=== PATIENT | female | born 1950 | race Hispanic/Latino ===

== ENCOUNTER → 2020-04-17 | Outpatient (CLI) | payer OTHER | END | disposition home or self-care (01) | LOC: RAH 10:35 | PROVIDERS: ATTEND Family Medicine | DX: N89.8 Other specified noninflammatory disorders of vagina (principal); Z90.81 Acquired absence of spleen; Z90.710 Acquired absence of both cervix and uterus | CPT/HCPCS: 76700; 76857 ==

== ENCOUNTER → 2020-05-15 | Outpatient (CLI) | payer OTHER | END | disposition home or self-care (01) | LOC: RAH 12:35 | PROVIDERS: ATTEND Family Medicine | DX: M71.21 Synovial cyst of popliteal space [Baker], right knee (principal); M79.89 Other specified soft tissue disorders | CPT/HCPCS: 93971 ==

== ENCOUNTER 2022-02-22 06:00 | Observation (INO) | payer MEDICARE ==
[2022-02-19 11:36] LABS: ALBUMIN 3.8 g/dL (3.5-5.0)
[2022-02-19 11:48] LABS: CRP QUANTITATIVE < 2.00 mg/L (0.00-9.0)
[2022-02-19 12:30] VITALS: BP 146/78
[2022-02-19 12:30] LABS: APPEARANCE,URINE CLEAR (CLEAR); BILIRUBIN,URINE NEGATIVE (NEGATIVE); COLOR,URINE LIGHT-YELLOW (YELLOW); GLUCOSE, URINE (UA) >=1000 mg/dL (NEGATIVE); KETONES,URINE NEGATIVE (NEGATIVE); LEUKOCYTE ESTERASE ,URINE NEGATIVE Leu/uL (NEGATIVE); NITRATE,URINE NEGATIVE (NEGATIVE); OCCULT BLOOD,URINE NEGATIVE (NEGATIVE); PH,URINE 5.5 (5.0-8.0); PROTEIN,URINE NEGATIVE (NEGATIVE); UROBILINOGEN,URINE 0.2 mg/dL (0.2-1.0)
[2022-02-19 12:38] LABS: BACTERIA,URINE RARE /HPF (None Seen); MUCUS,URINE RARE LPF (None Seen); SQUAMOUS EPITHELIAL CELL,UR RARE /HPF (0-2)
[2022-02-22] VITALS (23 sets, daily range): BP systolic 124–156; BP diastolic 54–95
[~2022-02-22] VITALS: Ht 160 cm; Wt 53.1 kg
[~2022-02-22 06:00] MED LIST: BIOTIN PO; CYAN-52 PO; EMPA10TA PO; KETOROLAC 30MG VIAL (30MG/ML) ONE; LATA7.5D OU; MAGN250T10 PO; MULT-1258 PO; PRAV10TA39 PO; ROPIVACAINE 0.5% 5MG/ML 30ML IJ ONE; TIMO1DRO5 OU; TRANEXAMIC ACID 1000MG/10ML ONE; UBID100C4 PO; VITAMIN D3 PO
[2022-02-22] MEDS ORDERED: CEFAZOLIN SODIUM 1 GM VIAL ONE (06:22)
[2022-02-22] MEDS ORDERED: 0.9%NACL 1000ML 1,000 ML IV ONE (06:22)
[2022-02-22] MEDS ORDERED: TRANEXAMIC ACID 1000MG/10ML ONE (06:35)
[2022-02-22] MEDS ORDERED: SUCCINYLCHOLINE 200MG/10ML SYR ONE (07:06)
[2022-02-22] MEDS ORDERED: LIDOCAINE PF 100MG/5ML (2%) SYRINGE 5ML ONE (07:06)
[2022-02-22] MEDS ORDERED: MIDAZOLAM HCL 1 MG/ML 2ML VIAL ONE (07:07)
[2022-02-22] MEDS ORDERED: ROCURONIUM 10MG/1ML SYR 10 MG/ML ML ONE (07:07)
[2022-02-22] MEDS ORDERED: PROPOFOL 10 MG/ML 20ML VIAL IV ONE (07:07)
[2022-02-22] MEDS ORDERED: EPHEDRINE SULFATE 50 MG/ML AMPULE ONE (07:07)
[2022-02-22] MEDS ORDERED: PHENYLEPHRINE HCL 10 MG/ML 1ML VIAL IV ONE (07:07)
[2022-02-22] MEDS ORDERED: FENTANYL CITRATE PF 50 MCG/1 ML 5ML AMP IV ONE (07:08)
[2022-02-22] MEDS ORDERED: 0.9%NACL 100ML 100 ML IV SCH (07:30)
[2022-02-22] MEDS ORDERED: KETOROLAC 30MG VIAL (30MG/ML) IVP SCH (07:30)
[2022-02-22] MEDS ORDERED: ROPIVACAINE 0.5% 5MG/ML 30ML IJ SCH (07:30)
[2022-02-22] MEDS ORDERED: ONDANSETRON 4MG INJ ONE (07:43)
[2022-02-22] MEDS ORDERED: DEXAMETHASONE SOD PHOSPHATE 10MG/ML 1ML VIAL ONE (07:43)
[2022-02-22] MEDS ORDERED: TRANEXAMIC ACID 1000MG/10ML IV ONE (07:57)
[2022-02-22] MEDS ORDERED: CEFAZOLIN SODIUM 1 GM VIAL IVP ONE (08:00)
[2022-02-22] MEDS ORDERED: NEOSTIGMINE 5MG/5ML SYR IV ONE (08:28)
[2022-02-22] MEDS ORDERED: GLYCOPYRROLATE 1 MG/5 ML SYRINGE ONE (08:28)
[2022-02-22] MEDS ORDERED: CALCIUM CARB 500MG PO PRN (09:00)
[2022-02-22] MEDS ORDERED: LIDOCAINE HCL-MPF 1% 2ML VIAL IV PRN (09:00)
[2022-02-22] MEDS ORDERED: TRAMADOL HCL 50 MG TABLET PO PRN (09:00)
[2022-02-22] MEDS ORDERED: FERROUS FUMARATE 324 MG TABLET PO PRN (09:00)
[2022-02-22] MEDS ORDERED: CYCLOBENZAPRINE HCL 10 MG TABLET PO PRN (09:00)
[2022-02-22] MEDS ORDERED: ONDANSETRON 4MG INJ IVP PRN (09:00)
[2022-02-22] MEDS ORDERED: HYDROCODONE/ACETAMINOPHEN 5/325 MG TAB PO PRN (09:00)
[2022-02-22] MEDS ORDERED: KCL 20 MEQ ERTAB PO PRN (09:00)
[2022-02-22] MEDS ORDERED: POTASSIUM CHLORIDE 20MEQ/100ML 100 ML IV PRN (09:00)
[2022-02-22] MEDS ORDERED: POTASSIUM CHLORIDE 10% ELIXIR 20 MEQ/15 ML UDCUP PO PRN (09:00)
[2022-02-22] MEDS ORDERED: MEPERIDINE-PF 25 MG/ML SYG ONE ×2 (09:34→09:45)
[2022-02-22] MEDS: 0.9%NACL 1000ML 1,000 ML IV SCH ×2 (11:00→16:19)
[2022-02-22] MEDS: DOCUSATE SODIUM 100 MG CAP PO SCH ×2 (11:25→20:17)
[2022-02-22] MEDS: ASPIRIN 325MG TAB PO SCH (11:25)
[2022-02-22] MEDS: POLYETHYLENE GLYCOL 3350 17 GM POWD.PACK PO SCH (11:26)
[2022-02-22] MEDS: GABAPENTIN 100 MG CAPSULE PO SCH ×3 (11:26→20:17)
[2022-02-22] MEDS: SIMVASTATIN 10 MG TABLET PO SCH (12:00)
[2022-02-22] MEDS: EMPAGLIFLOZIN 10 MG PO SCH (12:00)
[2022-02-22] MEDS: CYANOCOBALAMIN (VITAMIN B-12) 1,000 MCG TABLET PO SCH (12:07)
[2022-02-22] MEDS: MAGNESIUM OXIDE 400 MG TABLET PO SCH (12:09)
[2022-02-22] MEDS: MULTIVITAMIN TABLET PO SCH (12:10)
[2022-02-22] MEDS: BIOTIN PO SCH (12:19)
[2022-02-22] MEDS: KETOROLAC 15MG/ML VIAL (15MG/ML) IV SCH (12:50)
[2022-02-22] MEDS ORDERED: GLUCAGON 1MG KIT 1 MG ML IM PRN (13:00)
[2022-02-22] MEDS ORDERED: DEXTROSE 50%-WATER 50 ML DISP.SYRIN IV PRN (13:00)
[2022-02-22] MEDS: CEFAZOLIN SODIUM 1 GM VIAL IVP SCH ×2 (13:41→21:04)
[2022-02-22] MEDS: HYDROCODONE/ACETAMINOPHEN 5/325 MG TAB PO PRN ×2 (13:41→21:23)
[2022-02-22] MEDS: INSULIN HUMULIN R 100 UNIT/ML 3ML SQ SCH ×2 (16:30→20:22)
[2022-02-22] MEDS: TIMOLOL MALEATE 0.5% 5 ML BOTTLE OU SCH (20:15)
[2022-02-22] MEDS: LATANOPROST 2.5 ML DROPS OU SCH (20:15)
[2022-02-23 00:20] VITALS: BP 120/74
[2022-02-23] MEDS: KETOROLAC 15MG/ML VIAL (15MG/ML) IV SCH (01:13)
[2022-02-23] MEDS: HYDROCODONE/ACETAMINOPHEN 5/325 MG TAB PO PRN ×3 (03:43→18:23)
[2022-02-23 04:11] LABS: HEMATOCRIT 33.4 % (36-48); MEAN CORPUSCULAR HEMOGLOBIN 30.5 pg (27.0-33.0); MEAN CORPUSCULAR HGB CONC 33.5 g/dL (32.0-36.0); RED BLOOD CELL COUNT(AUTO) 3.67 MIL/uL (4.00-5.50); RED CELL DISTRIBUTION WIDTH 13.4 % (11.0-15.5)
[2022-02-23 04:18] LABS: CREATININE 0.7 mg/dL (0.5-1.5); POTASSIUM 3.9 mmol/L (3.5-5.1)
[2022-02-23 04:25] VITALS: BP 116/57
[2022-02-23] MEDS: 0.9%NACL 1000ML 1,000 ML IV SCH (05:00)
[2022-02-23] MEDS: INSULIN HUMULIN R 100 UNIT/ML 3ML SQ SCH ×4 (07:30→19:31)
[2022-02-23 08:00] VITALS: BP 121/54
[2022-02-23] MEDS: POLYETHYLENE GLYCOL 3350 17 GM POWD.PACK PO SCH (08:32)
[2022-02-23] MEDS: CYANOCOBALAMIN (VITAMIN B-12) 1,000 MCG TABLET PO SCH (08:32)
[2022-02-23] MEDS: MAGNESIUM OXIDE 400 MG TABLET PO SCH (08:32)
[2022-02-23] MEDS: MULTIVITAMIN TABLET PO SCH (08:32)
[2022-02-23] MEDS: GABAPENTIN 100 MG CAPSULE PO SCH ×3 (08:32→19:30)
[2022-02-23] MEDS: DOCUSATE SODIUM 100 MG CAP PO SCH ×2 (08:33→19:30)
[2022-02-23] MEDS: ASPIRIN 325MG TAB PO SCH (08:33)
[2022-02-23] MEDS: BIOTIN PO SCH (09:00)
[2022-02-23] MEDS: UBIDECARENONE 100 MG PO SCH (09:00)
[2022-02-23] MEDS: VITAMIN D3 1000 UNIT PO SCH (09:00)
[2022-02-23 12:00] VITALS: BP 97/52
[2022-02-23] MEDS: TIMOLOL MALEATE 0.5% 5 ML BOTTLE OU SCH ×2 (12:00→19:30)
[2022-02-23] MEDS: EMPAGLIFLOZIN 10 MG PO SCH (12:00)
[2022-02-23] MEDS: SIMVASTATIN 10 MG TABLET PO SCH (12:00)
[2022-02-23 16:00] VITALS: BP 100/50
[2022-02-23] MEDS: LATANOPROST 2.5 ML DROPS OU SCH (19:30)
[2022-02-23 20:03] VITALS: BP 121/68
[2022-02-24] MEDS: HYDROCODONE/ACETAMINOPHEN 5/325 MG TAB PO PRN ×3 (00:14→17:59)
[2022-02-24 00:29] VITALS: BP 124/64
[2022-02-24] MEDS: INSULIN HUMULIN R 100 UNIT/ML 3ML SQ SCH ×3 (06:08→16:30)
[2022-02-24 07:30] VITALS: BP 131/74
[2022-02-24] MEDS: MULTIVITAMIN TABLET PO SCH (07:49)
[2022-02-24] MEDS: GABAPENTIN 100 MG CAPSULE PO SCH ×2 (07:50→14:28)
[2022-02-24] MEDS: MAGNESIUM OXIDE 400 MG TABLET PO SCH (07:51)
[2022-02-24] MEDS: CYANOCOBALAMIN (VITAMIN B-12) 1,000 MCG TABLET PO SCH (07:51)
[2022-02-24] MEDS: ASPIRIN 325MG TAB PO SCH (07:51)
[2022-02-24] MEDS: DOCUSATE SODIUM 100 MG CAP PO SCH ×2 (09:00→19:42)
[2022-02-24] MEDS: POLYETHYLENE GLYCOL 3350 17 GM POWD.PACK PO SCH (09:00)
[2022-02-24] MEDS: VITAMIN D3 1000 UNIT PO SCH (09:00)
[2022-02-24] MEDS: BIOTIN PO SCH (09:00)
[2022-02-24] MEDS: UBIDECARENONE 100 MG PO SCH (09:00)
[2022-02-24] MEDS: EMPAGLIFLOZIN 10 MG PO SCH (10:26)
[2022-02-24 11:00] VITALS: BP 110/60
[2022-02-24] MEDS: TIMOLOL MALEATE 0.5% 5 ML BOTTLE OU SCH (12:00)
[2022-02-24] MEDS: SIMVASTATIN 10 MG TABLET PO SCH (12:00)
[2022-02-24] MEDS ORDERED: GABA100C PO (16:28)
[2022-02-24] MEDS ORDERED: HYDR-4060 PO (16:28)
[2022-02-24] MEDS ORDERED: CYCL-309 PO (16:28)
[2022-02-24] MEDS ORDERED: DOCU-116 PO (16:28)
[2022-02-24] MEDS ORDERED: ASPI-1026 PO (16:28)
[2022-02-24 16:30] VITALS: BP 129/76
[2022-02-25] MEDS ORDERED: BISACODYL 10 MG SUPP.RECT RC PRN (09:00)
== END 2022-02-24 20:00 | disposition home or self-care (01) ==
LOC: DAH 06:00 → DAHIP 06:01 → 4DH 10:41
PROVIDERS: ADMIT Student in an Organized Health Care Education/Training Program; ATTEND Student in an Organized Health Care Education/Training Program
DX: M17.11 Unilateral primary osteoarthritis, right knee (principal); Z20.822 Contact with and (suspected) exposure to COVID-19; R26.89 Other abnormalities of gait and mobility; M23.8X1 Other internal derangements of right knee; Z79.82 Long term (current) use of aspirin; Z79.899 Other long term (current) drug therapy; Z98.890 Other specified postprocedural states
CPT/HCPCS: 82040; 87077; 87088; 87186; 84134; 86140; 87426; 81001; 36415 ×2; 93005; 87641; 27447; 96374; 96376 ×2; 96375; 76942; 64447; 82948 ×2; 73560; 97161; 97039 ×6; 80048; 85027; 97116 ×4; 97530 ×4; G0378 ×55; A4663; A4215 ×2; J3010; J0690 ×3; J3490 ×5; J0330; J1100; J2710; J7030; J2001; J2250; J2704; J2405; J1885 ×3; J2175 ×2; J2795 ×2; J2370; G0168; A4649 ×4; A4930; C1776; A6255; A5120; A4223; A4222; A4221

== ENCOUNTER → 2025-04-04 | Outpatient (CLI) | payer MEDICARE ==
[~2025-04-04] MED LIST changes: +ASPI-1026 PO; +CYCL-309 PO; +DOCU-116 PO; +GABA100C PO; +HYDR-4060 PO; -KETOROLAC 30MG VIAL (30MG/ML) ONE; +PRAV10TA37 PO; -PRAV10TA39 PO; -ROPIVACAINE 0.5% 5MG/ML 30ML IJ ONE; -TIMO1DRO5 OU; +TIMO1DRO9 OU; -TRANEXAMIC ACID 1000MG/10ML ONE
--- NOTE | 2025-04-04 22:27 | HMCIMG ---
EXAM MR Lumbar Spine Without Intravenous Contrast. CLINICAL HISTORY Other intervertebral disc degeneration, lumbar region with discogenic back pain. TECHNIQUE Magnetic resonance images of the lumbar spine without intravenous contrast in multiple planes. CONTRAST None. COMPARISON None provided. FINDINGS Vertebrae Degenerative lumbar spondylosis with Pfirrmann grade III???IV disc degeneration most pronounced at L4???L5 and L5???S1. T11 vertebral body hemangioma/lipomatous hemangioma. No acute fracture. Alignment Anatomic alignment maintained. No spondylolisthesis. Spinal Cord and Cauda Equina Conus medullaris of normal signal and position. No intradural mass. Paraspinal Soft Tissues Facet arthrosis at L4???L5 and L5???S1, right-predominant, with periarticular soft-tissue edema and a 5 ??? 3 mm extraforaminal synovial cyst at the anterior aspect of the right L5???S1 facet joint; no direct root contact.FINDINGS BY LEVEL T11???T12 Incidental T11 hemangioma; no stenosis. L1???L2 Left posterior paracentral disc protrusion indenting the thecal sac. No Schizas canal stenosis (Grade 0). No Yovanny/Raven foraminal stenosis. No nerve root compression. L2???L3 Diffuse disc bulge contacting the thecal sac. No canal stenosis (Schizas Grade 0). No foraminal stenosis. No nerve compression. L3???L4 Posterocentral disc protrusion with diffuse disc disease indenting the thecal sac. Schizas Grade I central canal stenosis. No foraminal stenosis. No nerve compression. L4???L5 Diffuse disc disease with annular fissuring. Schizas Grade B central canal stenosis (mild???moderate). [id number] right-predominant facet arthrosis. Yovanny/Raven foraminal stenosis Grade 1???2 on left, Grade 2???3 on right with root contact and root distortion on the right. L5???S1 Diffuse disc disease with posterocentral protrusion indenting the thecal sac. No canal stenosis (Schizas Grade 0???I). Right-predominant facet arthrosis with facet effusion and periarticular edema. Yovanny/Raven foraminal stenosis Grade 2 on right with exiting root contact; left side without significant stenosis. A 5 ??? 3 mm right extraforaminal synovial cyst noted adjacent to the facet joint but without definite root impingement. IMPRESSION * Multilevel degenerative lumbar spondylosis, most pronounced at L4???L5 and L5???S1, with Pfirrmann grade III???IV disc degeneration and right-predominant facet arthropathy. * L4???L5: Schizas Grade B central canal stenosis with Yovanny/Raven Grade 2???3 right foraminal stenosis causing root contact and distortion, representing the dominant symptomatic level. * L5???S1: Posterocentral protrusion with right foraminal Yovanny/Raven Grade 2 stenosis and exiting L5 root contact, with associated facet effusion and a small right extraforaminal synovial cyst. * L3???L4: Schizas Grade I canal stenosis from disc protrusion without foraminal stenosis or neural compression. * L1???L2 and L2???L3: Disc protrusion/bulge contacting the thecal sac with no canal stenosis, no foraminal stenosis, and no nerve compression. * Incidental T11 vertebral body hemangioma. /[place]
== END | disposition home or self-care (01) ==
LOC: RAH 12:37
PROVIDERS: ATTEND Family Medicine
DX: M47.817 Spondylosis without myelopathy or radiculopathy, lumbosacral region (principal); M51.362 Other intervertebral disc degeneration, lumbar region with discogenic back pain and lower extremity pain; M48.061 Spinal stenosis, lumbar region without neurogenic claudication; M47.816 Spondylosis without myelopathy or radiculopathy, lumbar region; M51.26 Other intervertebral disc displacement, lumbar region; D18.09 Hemangioma of other sites; M51.360 Other intervertebral disc degeneration, lumbar region with discogenic back pain only; M71.38 Other bursal cyst, other site; M48.07 Spinal stenosis, lumbosacral region
CPT/HCPCS: 72148